=== PATIENT | female | born 1970 | race Caucasian/White ===

== ENCOUNTER 2022-06-10 10:46 | Outpatient (CLI) | payer OTHER, SELFPAY ==
[2022-06-10 11:00] LABS: Cholesterol* 186 mg/dL (90-199)
[2022-06-10 11:01] LABS: HDL Cholesterol* 36 mg/dL (>=50); LDL Cholesterol Calculated 110 mg/dL (<100); Triglycerides* 198 mg/dL (40-149)
== END 2022-06-10 10:47 | disposition home or self-care (01) ==
PROVIDERS: PCP Nurse Practitioner Family; Visit Provider Physician Assistant Medical
DX: Z00.00 Encounter for general adult medical examination without abnormal findings (principal); E78.00 Pure hypercholesterolemia, unspecified; K21.9 Gastro-esophageal reflux disease without esophagitis; E66.9 Obesity, unspecified
CPT/HCPCS: 80061

== ENCOUNTER 2022-11-22 18:51 | Outpatient (CLI) | payer OTHER, SELFPAY ==
--- NOTE | 2022-11-22 19:00 | CRLHL7_ITS ---
For Patients: As a result of the Century Cures Act, medical imaging exams and procedure reports are released immediately into your electronic medical record. You may view this report before your referring provider. If you have questions, please contact your health care provider. BILATERAL SCREENING MAMMOGRAM WITH COMPUTER-AIDED DETECTION TECHNIQUE: CC and MLO views were obtained. These mammographic images have been obtained using full-field digital technique. These mammographic images were interpreted with the benefit of computer-aided detection. COMPARISON FILM: 01/28/21, 11/28/17, 02/08/16. FINDINGS: There are scattered areas of fibroglandular density IMPRESSION: There is no radiographic evidence for malignancy. ASSESSMENT: BI-RADS Category 1: Negative RECOMMENDATION: Routine screening mammogram in 1 year. A lay language report of this examination will be provided to the patient. Anthony Suarez M.D. Diagnostic Radiologist [email or web address] Transcribed: 3:51 p.jenise gracia/Dictated by: Anthony Suarez MD @ 11/23/2022 8:59:00 AM (Electronically Signed)
== END 2022-11-22 18:52 | disposition home or self-care (01) ==
LOC: MAMMO 18:51
PROVIDERS: PCP Nurse Practitioner Family; Visit Provider Physician Assistant Medical
DX: Z12.31 Encounter for screening mammogram for malignant neoplasm of breast
CPT/HCPCS: 77063; 77067

== ENCOUNTER 2025-11-04 15:38 | Outpatient (CLI) | payer OTHER, SELFPAY | END 2025-11-04 15:39 | disposition home or self-care (01) | LOC: NFLDREF 11-10 07:53 | PROVIDERS: PCP Family Medicine; Referring Provider Family Medicine | DX: N30.01 Acute cystitis with hematuria (principal) | CPT/HCPCS: 87086 ==